=== PATIENT | female | born 1970 | race Caucasian/White ===

== ENCOUNTER 2019-02-06 14:55 | Emergency (ER) | payer BC ==
[~2019-02-06] VITALS: Ht 162.6 cm; Wt 49.9 kg
[2019-02-06 15:17] LABS: BASO % 1 % (0-3); EOS # 0.1 x10^3/uL (0.0-0.7); EOS % 1 % (0-3); HEMATOCRIT 38.3 % (36.0-47.0); HEMOGLOBIN 12.5 g/dL (12.0-15.5); LYMPH # 1.7 x10^3/uL (1.0-4.8); LYMPH % 17 % (24-48); MEAN CORPUSCULAR HEMOGLOBIN 31 pg (25-35); MEAN CORPUSCULAR HGB CONC 33 g/dL (31-37); MEAN CORPUSCULAR VOLUME 94 fL (79-100); MONO # 0.9 x10^3/uL (0.0-1.1); MONO % 9 % (0-9); NEUT # 7.2 x10^3uL (1.8-7.7); NEUT % 73 % (31-73); PLATELET COUNT 200 x10^3/uL (140-400); RED BLOOD COUNT 4.07 x10^6/uL (3.50-5.40); WHITE BLOOD COUNT 9.8 x10^3/uL (4.0-11.0)
[2019-02-06 15:28] LABS: CALCIUM 8.3 mg/dL (8.5-10.1); CREATININE 0.7 mg/dL (0.6-1.0); GFR 88.9; POTASSIUM 3.4 mmol/L (3.5-5.1)
[2019-02-06] MEDS ORDERED: LIDO:MAALOX 1:1 20 ML SINGLE DOSE. SWSW ONE (15:30)
[2019-02-06] MEDS ORDERED: IV NORMAL SALINE 1000ML BAG 1,000 ML IV ONE (15:30)
[2019-02-06] MEDS ORDERED: ONDANSETRON PF 4 MG/2 ML VIAL. IV ONE (15:30)
[2019-02-06] MEDS ORDERED: FAMOTIDINE 20 MG/2 ML VIAL IVP ONE (15:30)
[2019-02-06] MEDS: fentaNYL PF VIAL 100 MCG/2 ML VIAL IV PRN ×2 (15:32→17:29)
[2019-02-06 15:34] LABS: ALBUMIN 3.5 g/dL (3.4-5.0); ALBUMIN/GLOBULIN RATIO 1.1 (1.0-1.7); MAGNESIUM 1.7 mg/dL (1.8-2.4); TOTAL BILIRUBIN 0.9 mg/dL (0.2-1.0); TOTAL PROTEIN 6.6 g/dL (6.4-8.2)
[2019-02-06 15:36] LABS: BILIRUBIN,URINE NEGATIVE (NEG); CLARITY,URINE CLEAR; NITRITE,URINE NEGATIVE (NEG); PH,URINE 6.5; PROTEIN,URINE NEGATIVE (NEG-TRACE); UROBILINOGEN,URINE 0.2 mg/dL (0.2 mg/dL)
[2019-02-06 15:39] LABS: AMPHETAMINE/METHAMPHETAMINE NEG (NEG); BARBITURATES NEG (NEG); BENZODIAZEPINES NEG (NEG); CANNABINOIDS NEG (NEG); COCAINE NEG (NEG); METHADONE NEG (NEG); OPIATES NEG (NEG); PHENCYCLIDINE NEG (NEG)
--- NOTE | 2019-02-06 15:43 | PHYS DOC ---
Adult General Chief Complaint Chief Complaint: ABDOMINAL PAIN HPI HPI Patient is a 48 year old female with history of acid reflex presents to the ED today complaining of mild chronic epigastric abdominal pain with nausea that got worse a couple minutes prior to coming to the ED when she was working at [employer]. Patient states she took an antiacid with minimal relief. She denies any vomiting. She is also complaining of dysuria since yesterday. Denies any concerns for STDs. Denies anything specifically exacerbating her pain. Review of Systems Review of Systems Constitutional: Denies fever or chills [] Eyes: Denies change in visual acuity, redness, or eye pain [] HENT: Denies nasal congestion or sore throat [] Respiratory: Denies cough or shortness of breath [] Cardiovascular: No additional information not addressed in HPI [] GI: Reports epigastric abdominal pain with nausea, denies vomiting, bloody stools or diarrhea [] : Denies dysuria or hematuria [] Musculoskeletal: Denies back pain or joint pain [] Integument: Denies rash or skin lesions [] Neurologic: Denies headache, focal weakness or sensory changes [] All other systems were reviewed and found to be within normal limits, except as documented in this note. Current Medications Current Medications Current Medications Medications (Trade) Dose Ordered Sig/Katharine Start Time Stop Time Status Last Admin Dose Admin Famotidine (Pepcid Vial) 20 mg 1X ONCE 02/06/19 15:30 02/06/19 15:31 DC 02/06/19 15:32 20 MG Fentanyl Citrate (Fentanyl 2ml Vial) 50 mcg PRN Q15MIN PRN 02/06/19 15:15 02/07/19 15:14 02/06/19 15:32 50 MCG Metoclopramide HCl (Reglan Vial) 10 mg 1X ONCE 02/06/19 17:15 02/06/19 17:16 DC Multi-Ingredient Mouthwash/Gargle (Gi Cocktail) 20 ml 1X ONCE 02/06/19 15:30 02/06/19 15:31 DC 02/06/19 15:32 20 ML Ondansetron HCl (Zofran) 4 mg 1X ONCE 02/06/19 15:30 02/06/19 15:31 DC 02/06/19 15:32 4 MG Sodium Chloride 1,000 ml @ 1,000 mls/hr 1X ONCE 02/06/19 15:30 02/06/19 16:29 DC 02/06/19 15:31 1,000 MLS/HR Allergies Allergies Allergies Coded Allergies Type Severity Reaction Last Updated Verified codeine Allergy Unknown 02/06/19 Yes Physical Exam Physical Exam Constitutional: Well developed, well nourished, no acute distress, non-toxic appearance. [] HENT: Normocephalic, atraumatic, bilateral external ears normal, oropharynx moist, no oral exudates, nose normal. [] Eyes: PERRLA, EOMI, conjunctiva normal, no discharge. [] Neck: Normal range of motion, no tenderness, supple, no stridor. [] Cardiovascular:Heart rate regular rhythm, no murmur [] Lungs & Thorax: Bilateral breath sounds clear to auscultation [] Abdomen: Bowel sounds normal, soft, no tenderness, no masses, no pulsatile masses. [] Skin: Warm, dry, no erythema, no rash. [] Back: No tenderness, no CVA tenderness. [] Extremities: No tenderness, no cyanosis, no clubbing, ROM intact, no edema. [] Neurologic: Alert and oriented X 3, normal motor function, normal sensory function, no focal deficits noted. [] Psychologic: Affect normal, judgement normal, mood normal. [] Current Patient Data Vital Signs Vital Signs Date Time Temp Pulse Resp B/P (MAP) Pulse Ox O2 Delivery O2 Flow Rate FiO2 02/06/19 16:30 74 27 106/71 (83) 99 Room Air 02/06/19 14:55 97.7 97.7 Lab Values Laboratory Tests Test 02/06/19 15:00 02/06/19 15:09 Urine Collection Type Void Urine Color Straw Urine Clarity Clear Urine pH 6.5 Urine Specific [place] <=1.005 Urine Protein Negative mg/dL (NEG-TRACE) Urine Glucose (UA) Negative mg/dL (NEG) Urine Ketones (Stick) Negative mg/dL (NEG) Urine Blood Small (NEG) Urine Nitrite Negative (NEG) Urine Bilirubin Negative (NEG) Urine Urobilinogen Dipstick 0.2 mg/dL (0.2 mg/dL) Urine Leukocyte Esterase Negative (NEG) Urine RBC Occ /HPF (0-2) Urine WBC 0 /HPF (0-4) Urine Squamous Epithelial Cells Few /LPF Urine Bacteria 0 /HPF (0-FEW) Urine Opiates Screen Neg (NEG) Urine Methadone Screen Neg (NEG) Urine Barbiturates Neg (NEG) Urine Phencyclidine Screen Neg (NEG) Urine Amphetamine/Methamphetamine Neg (NEG) Urine Benzodiazepines Screen Neg (NEG) Urine Cocaine Screen Neg (NEG) Urine Cannabinoids Screen Neg (NEG) Urine Ethyl Alcohol Neg (NEG) White Blood Count 9.8 x10^3/uL (4.0-11.0) Red Blood Count 4.07 x10^6/uL (3.50-5.40) Hemoglobin 12.5 g/dL (12.0-15.5) Hematocrit 38.3 % (36.0-47.0) Mean Corpuscular Volume 94 fL (79-100) Mean Corpuscular Hemoglobin 31 pg (25-35) Mean Corpuscular Hemoglobin Concent 33 g/dL (31-37) Red Cell Distribution Width 13.0 % (11.5-14.5) Platelet Count 200 x10^3/uL (140-400) Neutrophils (%) (Auto) 73 % (31-73) Lymphocytes (%) (Auto) 17 % (24-48) L Monocytes (%) (Auto) 9 % (0-9) Eosinophils (%) (Auto) 1 % (0-3) Basophils (%) (Auto) 1 % (0-3) Neutrophils # (Auto) 7.2 x10^3uL (1.8-7.7) Lymphocytes # (Auto) 1.7 x10^3/uL (1.0-4.8) Monocytes # (Auto) 0.9 x10^3/uL (0.0-1.1) Eosinophils # (Auto) 0.1 x10^3/uL (0.0-0.7) Basophils # (Auto) 0.0 x10^3/uL (0.0-0.2) Sodium Level 134 mmol/L (136-145) L Potassium Level 3.4 mmol/L (3.5-5.1) L Chloride Level 100 mmol/L (98-107) Carbon Dioxide Level 24 mmol/L (21-32) Anion Gap 10 (6-14) Blood Urea Nitrogen 11 mg/dL (7-20) Creatinine 0.7 mg/dL (0.6-1.0) Estimated GFR (Cockcroft-Gault) 88.9 BUN/Creatinine Ratio 16 (6-20) Glucose Level 90 mg/dL (70-99) Calcium Level 8.3 mg/dL (8.5-10.1) L Magnesium Level 1.7 mg/dL (1.8-2.4) L Total Bilirubin 0.9 mg/dL (0.2-1.0) Aspartate Amino Transferase (AST) 193 U/L (15-37) H Alanine Aminotransferase (ALT) 148 U/L (14-59) H Alkaline Phosphatase 78 U/L (46-116) Creatine Kinase 106 U/L (26-192) Creatine Kinase MB (Mass) 1.8 ng/mL (0.0-3.6) Creatine Kinase MB Relative Index 1.7 % (0-4) Troponin I Quantitative < 0.017 ng/mL (0.000-0.055) SR-Vxl-Z-Type Natriuretic Peptide 63 pg/mL (0-124) Total Protein 6.6 g/dL (6.4-8.2) Albumin 3.5 g/dL (3.4-5.0) Albumin/Globulin Ratio 1.1 (1.0-1.7) Lipase 158 U/L (73-393) Thyroid Stimulating Hormone (TSH) 1.184 uIU/mL (0.358-3.74) Laboratory Tests 02/06/19 15:09 Laboratory Tests 02/06/19 15:09 EKG EKG 15:[address] Michael sinus rhythm HR 76 no STEMI[] Radiology/Procedures Radiology/Procedures []PROCEDURE: ABDOMEN COMPLETE Right upper quadrant ultrasound dated 02/06/2019. No comparison available. Clinical data indication: Abdominal pain. FINDINGS: Liver is homogeneous in echogenicity. No focal hepatic mass. Intrahepatic and extrahepatic biliary tree are normal in caliber. The common bile duct measures 5 mm. Gallbladder is surgically absent. No abnormality at the gallbladder fossa. Right kidney measures 10.4 cm in length. Left kidney measures 10.5 cm in length. No hydronephrosis. Spleen is homogeneous in echogenicity and measures 8.5 cm longitudinal dimension. Limited visualized portions of pancreas aorta and IVC are unremarkable. No significant ascites. IMPRESSION: 1. No acute sonographic abnormality. 2. Status post cholecystectomy. Electronically signed by: Efrain Young MD (02/06/2019 5:11 PM) [facility] DICTATED and SIGNED BY: EFRAIN YOUNG MD DATE: 02/06/19 1711 PROCEDURE: PORTABLE CHEST 1V PORTABLE CHEST 1V Clinical History: EPIGASTRIC PAIN Technique: AP view of the chest was obtained at 02/06/2019 3:09 PM. Comparison: December 26, 2012. Findings: The cardiomediastinal silhouette is normal. The pulmonary vasculature is normal. The lungs and pleural margins are clear. Impression: No evidence of an acute cardiopulmonary process. Electronically signed by: Haily Botello III, MD (02/06/2019 4:34 PM) [facility] DICTATED and SIGNED BY: HAILY BOTELLO III, MD DATE: 02/06/19 4094 Course & Med Decision Making Course & Med Decision Making Pertinent Labs and Imaging studies reviewed. (See chart for details) This is a 48-year-old female patient presenting to the ED today with epigastric abdominal pain that began a couple minutes prior to coming to the ED. Has history of acid reflex. EKG was negative, CBC with normal WBC, CMP with AST of 193 and ALT 148. ABD ultrasound was ordered-abdominal ultrasound was negative for any acute findings, noted for cholecystectomy. Troponin is normal. She was given GI cocktail, famotidine, IV fluids, feeling better. Discharged to home. Has a PCP, recommended she follows up as an outpatient. Also provided GI for follow-up. Recommended she starts taking an antiacid for her chronic GERD. Dragon Disclaimer Dragon Disclaimer This electronic medical record was generated, in whole or in part, using a voice recognition dictation system. Departure Departure Impression: Primary Impression: Epigastric pain Additional Impressions: GERD (gastroesophageal reflux disease) Transaminitis Nausea Disposition: HOME, SELF-CARE Condition: STABLE Referrals: LORNE RAINEY MD (PCP) follow up in the course of this week NEL PUTNAM MD follow up in 1 week Patient Instructions: Abdominal Pain, Diet for Gastroesophageal Reflux Disease , Adult Additional Instructions: You were evaluated in the emergency room for epigastric pain, we highly recommend you take your antiacid. We also recommended you follow-up with your own doctor as well as the provided counter tender. Scripts Omeprazole (OMEPRAZOLE) 20 Mg Capsule.dr 1 CAP PO DAILY, #14 CAP 0 Refills Prov: PERCY DE LOS SANTOS APRN 02/06/19 Ondansetron (ONDANSETRON ODT) 4 Mg Tab.rapdis 1 TAB PO PRN Q6-8HRS, #16 TAB Prov: PERCY DE LOS SANTOS APRN 02/06/19 Problem Qualifiers Additional Impressions: GERD (gastroesophageal reflux disease) Esophagitis presence: esophagitis presence not specified Qualified Codes: K21.9 - Gastro-esophageal reflux disease without esophagitis PERCY DE LOS SANTOS APRN Feb 06, 2019 15:43
[2019-02-06 15:44] LABS: COLOR,URINE STRAW
[2019-02-06 15:46] LABS: BACTERIA,URINE 0 /HPF (0-FEW); RBC,URINE OCC /HPF (0-2); SQUAMOUS EPITHELIAL CELL,UR FEW /LPF; WBC,URINE 0 /HPF (0-4)
--- NOTE | 2019-02-06 16:37 | RAD ---
PORTABLE CHEST 1V Clinical History: EPIGASTRIC PAIN Technique: AP view of the chest was obtained at 02/06/2019 3:09 PM. Comparison: December 26, 2012. Findings: The cardiomediastinal silhouette is normal. The pulmonary vasculature is normal. The lungs and pleural margins are clear. Impression: No evidence of an acute cardiopulmonary process. Electronically signed by: Lars Brown III, MD (02/06/2019 4:34 PM) [id number]
--- NOTE | 2019-02-06 17:14 | RAD ---
Right upper quadrant ultrasound dated 02/06/2019. No comparison available. Clinical data indication: Abdominal pain. FINDINGS: Liver is homogeneous in echogenicity. No focal hepatic mass. Intrahepatic and extrahepatic biliary tree are normal in caliber. The common bile duct measures 5 mm. Gallbladder is surgically absent. No abnormality at the gallbladder fossa. Right kidney measures 10.4 cm in length. Left kidney measures 10.5 cm in length. No hydronephrosis. Spleen is homogeneous in echogenicity and measures 8.5 cm longitudinal dimension. Limited visualized portions of pancreas aorta and IVC are unremarkable. No significant ascites. IMPRESSION: 1. No acute sonographic abnormality. 2. Status post cholecystectomy. Electronically signed by: Efrain Young MD (02/06/2019 5:11 PM) [facility]
[2019-02-06] MEDS ORDERED: METOCLOPRAMIDE HCL 10 MG/2 ML VIAL. IV ONE (17:15)
[2019-02-06] MEDS ORDERED: OMEP20CA10 PO (17:27)
[2019-02-06] MEDS ORDERED: ONDA4TAB12 PO (17:27)
[2019-02-06 17:30] VITALS: BP 121/81
--- NOTE | 2019-02-07 14:42 | EKG ---
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
== END 2019-02-06 17:42 | disposition home or self-care (01) ==
LOC: ER 14:55
DX: K21.9 Gastro-esophageal reflux disease without esophagitis (principal); R74.0 Nonspecific elevation of levels of transaminase and lactic acid dehydrogenase [LDH]; Z90.49 Acquired absence of other specified parts of digestive tract; Z88.5 Allergy status to narcotic agent
CPT/HCPCS: 36415; 71045; 76700; 80053; 80307; 81001; 82553; 83690; 83735; 83880; 84443; 84484; 85025; 93005; 96374; 96375; 96376; 99285; J2405; J2765; J3010; J3490; J7030

== ENCOUNTER → 2019-05-06 | Day surgery (SDC) | payer BC ==
[~2019-05-06] MED LIST: ASPI1TAB31 PO; IV RINGERS,LACTATED 1000ML 1,000 ML IV SCH; OMEP20CA10 PO; ONDA4TAB12 PO; PROPOFOL 40 ML IV ONE
[2019-05-06 11:38] VITALS: BP 121/81
== END ==
LOC: ENDOS 09:09
PROVIDERS: ATTEND Internal Medicine Gastroenterology
DX: K29.50 Unspecified chronic gastritis without bleeding (principal); K57.30 Diverticulosis of large intestine without perforation or abscess without bleeding; K64.0 First degree hemorrhoids; F41.9 Anxiety disorder, unspecified; K21.9 Gastro-esophageal reflux disease without esophagitis; F15.90 Other stimulant use, unspecified, uncomplicated; Z88.5 Allergy status to narcotic agent; Z88.8 Allergy status to other drugs, medicaments and biological substances; Z91.041 Radiographic dye allergy status; Z90.49 Acquired absence of other specified parts of digestive tract; Z98.51 Tubal ligation status
CPT/HCPCS: 43235; 45378; J2704

== ENCOUNTER → 2019-05-13 | Outpatient (CLI) | payer BC ==
[2019-05-06 11:38] VITALS: BP 121/81
[~2019-05-13] MED LIST changes: -IV RINGERS,LACTATED 1000ML 1,000 ML IV SCH; -PROPOFOL 40 ML IV ONE
--- NOTE | 2019-05-13 17:04 | KCIC ---
SMALL BOWEL SERIES Clinical indications: Weight loss, right abdominal pain. Technique: A preliminary KUB was performed. The patient drank two 8 ounce glasses of thin liquid barium containing 1 ounce of Gastrografin and a small bowel series was performed. When the contrast reached the colon, fluoroscopic evaluation of the small bowel was performed including compressive fluoroscopic spot views of the terminal ileum. Fluoroscopic time: 38 seconds Fluoroscopic spot images: 3 Findings: No obstructive bowel pattern is seen on the preliminary film. Large colonic stool burden. Cholecystectomy clips. Contrast reaches the colon by 15 minutes. Peristalsis of the small bowel loops is observed during fluoroscopy. No mucosal fold thickening or distortion or displacement or dilatation of small bowel loops is seen.The terminal ileum is distensible and appears normal radiographically and is not focally tender during compression.. Impression: Unremarkable small bowel series. Large amount of colonic stool. Electronically signed by: Dorian Clark MD (05/13/2019 5:02 PM) [id number]
== END ==
LOC: KCIC 08:00
PROVIDERS: ATTEND Internal Medicine Gastroenterology
DX: R19.5 Other fecal abnormalities (principal); R63.4 Abnormal weight loss; Z90.49 Acquired absence of other specified parts of digestive tract
CPT/HCPCS: 74250

== ENCOUNTER → 2019-06-03 | Outpatient (CLI) | payer BC ==
[2019-05-06 11:38] VITALS: BP 121/81
[~2019-06-03] MED LIST changes: +IOHEXOL 300 MG/ML 100ML VIAL. IV ONE
--- NOTE | 2019-06-03 11:52 | KCIC ---
EXAM: CT angiogram abdomen CLINICAL HISTORY: Abdominal pain, weight loss, history of cholecystectomy.. COMPARISON: CT 04/08/2019 TECHNIQUE: CT of the angiogram of the abdomen was performed following the administration of intravenous contrast. Axial, coronal and sagittal reformatted images were generated including 3-D/MIP images. ---PQRS compliance statement - One or more of the following individualized dose reduction techniques were utilized for this study: 1. Automated exposure control 2. Adjustment of the mA and/or kV according to patient size 3. Use of iterative reconstruction technique--- FINDINGS: Lung bases: Lung bases are clear. Heart is not enlarged. Abdomen: No focal liver lesion. Cholecystectomy changes are noted. No biliary ductal dilatation. Pancreas is unremarkable. Adrenal glands are normal. Spleen is unremarkable. Symmetric nephrograms. No focal renal lesion. No hydronephrosis. No hydroureter. No abdominal ascites. No abdominal lymphadenopathy. Visualized portions of the small and large bowel are grossly normal in caliber. Moderate colonic stool content is seen. Colonic diverticulosis without evidence for acute diverticulitis. Prominent duodenal diverticulum is seen. The aorta is normal in caliber throughout without aneurysmal dilatation or dissection. The left gastric artery arises from the aorta. The celiac trunk, 2 right and one left renal arteries are widely patent without definite stenosis. The TAISHA is also widely patent at the origin. Small fat-containing periumbilical hernia. Bones: No definite aggressive osseous lesion. IMPRESSION: 1. The abdominal aorta is normal in caliber without high-grade stenosis or occlusion of the main branches. 2. Prominent duodenal diverticulum. 3. Colonic diverticulosis. Electronically signed by: Ha Rowe MD (06/03/2019 11:49 AM) [facility]
== END | disposition home or self-care (01) ==
LOC: KCIC CT 09:03
PROVIDERS: ATTEND Internal Medicine Gastroenterology
DX: K57.30 Diverticulosis of large intestine without perforation or abscess without bleeding (principal); K42.9 Umbilical hernia without obstruction or gangrene; K57.10 Diverticulosis of small intestine without perforation or abscess without bleeding; F17.200 Nicotine dependence, unspecified, uncomplicated; Z90.49 Acquired absence of other specified parts of digestive tract; Z88.5 Allergy status to narcotic agent; Z91.041 Radiographic dye allergy status
CPT/HCPCS: 74175; Q9967

== ENCOUNTER 2020-10-13 15:00 | Emergency (ER) | payer BC ==
[2019-05-06 11:38] VITALS: BP 121/81
[~2020-10-13 15:00] MED LIST changes: -IOHEXOL 300 MG/ML 100ML VIAL. IV ONE; -OMEP20CA10 PO; +OMEP20CA16 PO
== END 2020-10-13 16:56 | disposition left against medical advice (07) ==
LOC: ER 15:00
DX: R05 Cough (principal); Z53.21 Procedure and treatment not carried out due to patient leaving prior to being seen by health care provider